=== PATIENT | female | born 1975 | race Caucasian/White ===

== ENCOUNTER → 2016-07-25 | Outpatient (CLI) | payer OTHER ==
[~2016-07-25] MED LIST: CALCIUM 600 +1 EAC3 PO; FLEXERIL 10 MG10 MG PO; FLONASE 0.05% N16 GM; IBUPROFEN800 MG PO; LISINOPRIL5 MG PO; NEURONTIN 400400 MG PO; NORCO 7.5-3251 EACH PO; TRAMADOL HCL50 MG PO; ZYRTEC10 M3 PO
== END ==
LOC: EMI 07-05 08:00 → MRI 13:00
DX: R10.11 Right upper quadrant pain (principal); K83.8 Other specified diseases of biliary tract; K83.1 Obstruction of bile duct
CPT/HCPCS: 36415; 74181; 80076; 82150; 83690